=== PATIENT | male | born 1945 | race Caucasian/White ===

== ENCOUNTER 2021-02-15 19:07 | Emergency (ER) | payer BC, MEDICARE, OTHER ==
[~2021-02-15] VITALS: Ht 172.7 cm; Wt 63.3 kg
[2021-02-15] MEDS ORDERED: ACETAMINOPHEN 500 MG TABLET PO ONE (20:00)
[2021-02-15] MEDS ORDERED: OMNIPAQUE 350 MG/ML, 100ML BOTTLE ONE (20:00)
[2021-02-15] MEDS ORDERED: ACETAMINOPHEN 500 MG TABLET ONE (20:14)
[2021-02-15 20:27] LABS: BASOPHILS % (AUTO) 1 % (0-1); EOSINOPHILS % (AUTO) 3 % (1-7); LYMPHOCYTES % (AUTO) 11 % (22-44); MEAN CORPUSCULAR HEMOGLOBIN 31.2 pg (27.5-34.5); MEAN CORPUSCULAR HGB CONC 33.1 g/dL (33.2-36.2); MEAN PLATELET VOLUME 9.1 fL (7.4-10.4); MONOCYTES % (AUTO) 13 % (2-9); NEUTROPHILS % (AUTO) 72 % (42-75); PLATELET COUNT 238 x10^3/uL (130-400); RED CELL DISTRIBUTION WIDTH 14.7 % (9.4-14.8)
[2021-02-15 20:29] LABS: MD NO
[2021-02-15 20:33] LABS: ALANINE AMINOTRANSFERASE 21 U/L (12-78); ALBUMIN 3.2 g/dL (3.4-5.0); ANION GAP 6 mmol/L (5-15); CHLORIDE 98 mmol/L (98-107); CREATININE 5.17 mg/dL (0.7-1.3)
[2021-02-15 20:36] LABS: ALKALINE PHOSPHATASE 144 U/L (45-117); BILIRUBIN,TOTAL 0.3 mg/dL (0.2-1.0); TOTAL PROTEIN 6.9 g/dL (6.4-8.2)
--- NOTE | 2021-02-15 22:16 | NUR ---
PT RESTING IN ED BED, PT ON MONITOR, PT VSS. PT HAS BEEN MEDICATED PER MAR. PT DENIED ANY CURRENT WANTS OR NEEDS AT THIS TIME.
[2021-02-15] MEDS ORDERED: metroNIDAZOLE 500 MG TABLET ONE (22:48)
[2021-02-15] MEDS ORDERED: CIPROFLOXACIN 500 MG TABLET ONE (22:48)
[2021-02-15] MEDS ORDERED: CIPROFLOXACIN 500 MG TABLET PO ONE (23:00)
[2021-02-15] MEDS ORDERED: metroNIDAZOLE 500 MG TABLET PO ONE (23:00)
[2021-02-15 23:05] VITALS: BP 133/75
== END 2021-02-15 23:07 | disposition home or self-care (01) ==
LOC: ED 20:58
DX: K57.32 Diverticulitis of large intestine without perforation or abscess without bleeding (principal); I10 Essential (primary) hypertension
CPT/HCPCS: 36415; 74176; 80053; 83690; 85025; 99284; Q9967

== ENCOUNTER 2021-04-11 13:27 | Emergency (ER) | payer OTHER ==
[~2021-04-11] VITALS: Ht 167.6 cm; Wt 69.6 kg
--- NOTE | 2021-04-11 13:52 | NUR ---
PT AMBULATORY TO ROOM 26 W/ C/O LLQ ABD PAIN X3-4 MONTHS. PT STATES THE PAIN HAS NOT GONE AAWAY AND HAS DECIDED TO COME TO ED. PT STATES HE WAS SEEN HERE IN JANUARY FOR SAME AND WAS DX W/ DIVERTICULOSIS AT THAT TIME. PT RESTING ON GURNEY. NADN. MONITORS APPLIED. BP ELEVATED. WARM BLANKET PROVIDED. CALL LIGHT IN REACH. ERP DR. NUNO AT BEDSIDE FOR EVAL AND AWARE OF PT ELEVATED BP.
[2021-04-11] MEDS ORDERED: SODIUM CHLORIDE FLUSH 10ML SYR IVF ONE (14:00)
--- NOTE | 2021-04-11 14:08 | NUR ---
PT HAS ORDERS FOR CT W/ CONT. SPOKE W/ ERP DR. NUNO WHO STATES THAT PT IS ON DIALYSIS AND WILL DO THE CT W/ CONT.
[2021-04-11 14:53] LABS: BASOPHILS % (AUTO) 1 % (0-1); EOSINOPHILS % (AUTO) 3 % (1-7); LYMPHOCYTES % (AUTO) 21 % (22-44); MEAN CORPUSCULAR HEMOGLOBIN 30.8 pg (27.5-34.5); MEAN CORPUSCULAR HGB CONC 33.2 g/dL (33.2-36.2); MEAN PLATELET VOLUME 8.6 fL (7.4-10.4); MONOCYTES % (AUTO) 14 % (2-9); NEUTROPHILS % (AUTO) 60 % (42-75); PLATELET COUNT 157 x10^3/uL (130-400); RED BLOOD COUNT 3.84 x10^6/uL (4.38-5.82); RED CELL DISTRIBUTION WIDTH 14.2 % (9.4-14.8)
[2021-04-11 15:00] LABS: ALANINE AMINOTRANSFERASE 26 U/L (12-78); ALBUMIN 2.8 g/dL (3.4-5.0); ANION GAP 6 mmol/L (5-15); CALCIUM 9.5 mg/dL (8.5-10.1); CHLORIDE 102 mmol/L (98-107); CREATININE 5.24 mg/dL (0.7-1.3)
[2021-04-11] MEDS ORDERED: OMNIPAQUE 350 MG/ML, 100ML BOTTLE ONE (15:01)
[2021-04-11 15:03] LABS: ALKALINE PHOSPHATASE 129 U/L (45-117); BILIRUBIN,TOTAL 0.4 mg/dL (0.2-1.0); TOTAL PROTEIN 5.9 g/dL (6.4-8.2)
--- NOTE | 2021-04-11 15:12 | NUR ---
PT CHART REVIEWED AND PLACED FOR RECHECK.
--- NOTE | 2021-04-11 15:12 | NUR ---
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 STATES HE CAN URINATE SOMETIMES BUT IT'S RARE. PT ATTEMPTED TO PROVIDE UA SAMPLE W/O SUCCESS. ERP DR. NUNO MADE AWARE.
--- NOTE | 2021-04-11 16:01 | NUR ---
ATTEMPTED STRAIGHT CATH W/ 16F W/O SUCCESS. ATTEMPTED 18F COUDE TIP CATHETER FOR STRAIGHT CATH W/O SUCCESS. ERP DR. NUNO NOTIFIED.
[2021-04-11 17:00] VITALS: BP 169/93
--- NOTE | 2021-04-11 17:00 | NUR ---
ERP DR. NUNO AT BEDSIDE FOR RE-EVAL AND DISCUSS POC TO DC AND F/U W/ UROLOGY OUTPT.
== END 2021-04-11 17:21 | disposition home or self-care (01) ==
LOC: ED 17:15
DX: I12.0 Hypertensive chronic kidney disease with stage 5 chronic kidney disease or end stage renal disease (principal); N18.6 End stage renal disease; N40.1 Benign prostatic hyperplasia with lower urinary tract symptoms; R33.8 Other retention of urine; R10.32 Left lower quadrant pain; G89.29 Other chronic pain
CPT/HCPCS: 36415; 74177; 80053; 83690; 85025; 99285; Q9967